=== PATIENT | male | born 1955 | race Two or more races ===

== ENCOUNTER 2016-12-16 15:30 | Outpatient (CLI) | payer BC | END 2016-12-16 23:59 | disposition home or self-care (01) | LOC: VASLAB 15:30 | PROVIDERS: ATTEND Surgery Vascular Surgery | DX: I70.261 Atherosclerosis of native arteries of extremities with gangrene, right leg (principal); L97.519 Non-pressure chronic ulcer of other part of right foot with unspecified severity | CPT/HCPCS: A6402; G0463 ==

== ENCOUNTER 2016-12-17 16:03 | Outpatient (CLI) | payer BC | END 2016-12-17 23:59 | disposition home or self-care (01) | LOC: WOU 16:03 | PROVIDERS: ATTEND Specialist | DX: E11.52 Type 2 diabetes mellitus with diabetic peripheral angiopathy with gangrene (principal); E11.621 Type 2 diabetes mellitus with foot ulcer; L97.519 Non-pressure chronic ulcer of other part of right foot with unspecified severity; I10 Essential (primary) hypertension; Z79.4 Long term (current) use of insulin | CPT/HCPCS: 99214; A6402; G0463 ==

== ENCOUNTER 2016-12-24 12:08 | Outpatient (CLI) | payer BC ==
[2016-12-24] MEDS ORDERED: SILVER SULFADIAZINE CREAM 400 GM JAR TP SCH (17:00)
[2016-12-25] MEDS ORDERED: DAKINS QUARTER STRENGTH (0.125%) 480 ML BOTTLE TOP SCH (09:00)
[2016-12-25] MEDS ORDERED: HYDR-3326 PO (15:15)
[2016-12-25] MEDS ORDERED: CLOP75TA2 PO (15:15)
[2016-12-25] MEDS ORDERED: LISI1TAB11 PO (15:15)
== END 2016-12-24 23:59 | disposition home or self-care (01) ==
LOC: WOU 12:08
PROVIDERS: ATTEND Specialist
DX: E11.52 Type 2 diabetes mellitus with diabetic peripheral angiopathy with gangrene (principal); E11.621 Type 2 diabetes mellitus with foot ulcer; M72.6 Necrotizing fasciitis; I10 Essential (primary) hypertension; Z98.62 Peripheral vascular angioplasty status; T14.90 Injury, unspecified; W22.03XS Walked into furniture, sequela; Z79.02 Long term (current) use of antithrombotics/antiplatelets; Z86.718 Personal history of other venous thrombosis and embolism; Z79.4 Long term (current) use of insulin
CPT/HCPCS: 87070-TC; 87186-TC; A6402; G0463

== ENCOUNTER 2016-12-24 20:33 | Emergency (ER) | payer BC ==
[2016-12-25] MEDS ORDERED: LISI1TAB11 PO (15:15)
[2016-12-25] MEDS ORDERED: HYDR-3326 PO (15:15)
[2016-12-25] MEDS ORDERED: CLOP75TA2 PO (15:15)
== END 2016-12-24 22:16 | disposition left against medical advice (07) ==
LOC: ER 20:36
DX: Z53.21 Procedure and treatment not carried out due to patient leaving prior to being seen by health care provider (principal)

== ENCOUNTER 2016-12-25 13:30 | Inpatient (IN) | payer BC, OTHER ==
[~2016-12-25] VITALS: Ht 167.6 cm; Wt 84.4 kg
[2016-12-25 14:49] LABS: BASOPHILS % (AUTO) 0.4 % (0.0-2.0); DIFF TOTAL % 100 %; EOSINOPHILS # (AUTO) 0.1 /CMM (0.0-0.7); EOSINOPHILS % (AUTO) 1.3 % (0.0-6.0); HEMATOCRIT 36 % (39-51); HEMOGLOBIN 11.6 g/dL (13.5-17.5); LYMPHOCYTES # (AUTO) 1.9 /CMM (0.8-4.8); LYMPHOCYTES % (AUTO) 18.4 % (20.0-44.0); MEAN CORPUSCULAR HEMOGLOBIN 26 PG (26.0-33.0); MEAN CORPUSCULAR HGB CONC 33 g/dl (31.0-36.0); MEAN CORPUSCULAR VOLUME 80 fL (80-96); MONOCYTES # (AUTO) 0.5 /CMM (0.1-1.30); NEUTROPHILS % (AUTO) 74.9 % (43.0-81.0); PLATELET COUNT (AUTO) 520 /CMM (150-450); RED BLOOD CELL COUNT(AUTO) 4.42 MIL/uL (4.5-6.0); WHITE BLOOD COUNT (AUTO) 10.5 K/uL (4.3-11.0)
[2016-12-25 15:01] LABS: CALCIUM, SERUM 9.7 mg/dL (8.5-10.1); CREATININE 0.9 mg/dL (0.6-1.3); POTASSIUM 4.1 mmol/L (3.5-5.1)
[2016-12-25 15:05] LABS: INR 0.98 (0.87-1.13); PROTHROMBIN TIME 10.3 SECS (9.5-12.7)
[2016-12-25] MEDS ORDERED: HYDR-3326 PO (15:15)
[2016-12-25] MEDS ORDERED: CLOP75TA2 PO (15:15)
[2016-12-25] MEDS ORDERED: LISI1TAB11 PO (15:15)
[2016-12-25] MEDS ORDERED: MORPHINE SULFATE INJ 4 MG/ML DISP.SYRIN ONE (15:19)
[2016-12-25] MEDS ORDERED: MORPHINE SULFATE INJ 10 MG/ML DISP.SYRIN IV ONE (15:30)
[2016-12-25] MEDS ORDERED: PIPERACILLIN /TAZOBACTAM 3.375 G in IV D5W 50 ML IV ONE (16:30)
[2016-12-25] MEDS ORDERED: VANCOMYCIN 1 GM in IV D5W 250 ML IV ONE (16:30)
[2016-12-25] MEDS ORDERED: ONDANSETRON HCL/PF 4 MG/2 ML VIAL IVP PRN ×3 (17:00→18:00)
[2016-12-25] MEDS ORDERED: MAG HYDROX/AL HYDROX/SIMETH 30 ML UDC PO PRN ×4 (17:00→18:00)
[2016-12-25] MEDS ORDERED: IV NS 0.9% 1,000 ML IV SCH (17:00)
[2016-12-25] MEDS ORDERED: ACETAMINOPHEN 325 MG TABLET PO PRN ×4 (17:00→18:00)
[2016-12-25] MEDS ORDERED: HYDROCODONE/APAP 5/325MG 1 EACH TABLET PO PRN ×4 (17:00→18:00)
[2016-12-25] MEDS ORDERED: ZOLPIDEM TARTRATE 5 MG TABLET PO PRN ×4 (17:00→18:00)
[2016-12-25] MEDS ORDERED: Z GUARD REMEDY 2 OZ OINT TP PRN ×4 (17:00→18:00)
[2016-12-25] MEDS ORDERED: MAGNESIUM HYDROXIDE 30 ML UDC PO PRN ×4 (17:00→18:00)
[2016-12-25] MEDS ORDERED: IV SET PRIMARY PUMP SET 1 EA INFUS.SET MC ONE ×2 (17:24→20:07)
[2016-12-25] MEDS ORDERED: FEE PK DOSING 1 MIN EA MC ONE (19:49)
[2016-12-25 20:00] VITALS: BP_SYST 136; BP_SYST 154; BP_DIAS 80; BP_DIAS 82
[2016-12-25] MEDS: IV NS 0.9% 1,000 ML IV SCH (20:13)
[2016-12-25] MEDS ORDERED: VANCOMYCIN 1.5 GM in IV D5W 500 ML IV SCH (21:00)
[2016-12-25] MEDS: VANCOMYCIN 1.25 GM in IV D5W 500 ML IV SCH (21:00)
[2016-12-25] MEDS ORDERED: MORPHINE SULFATE INJ 2 MG/ML DISP.SYRIN ONE (21:28)
[2016-12-25] MEDS: MORPHINE SULFATE INJ 2 MG/ML DISP.SYRIN IV PRN (22:09)
[2016-12-26] VITALS (7 sets, daily range): BP systolic 129–166; BP diastolic 70–87
[2016-12-26] MEDS: MORPHINE SULFATE INJ 2 MG/ML DISP.SYRIN IV PRN ×4 (05:33→20:29)
[2016-12-26] MEDS ORDERED: PANTOPRAZOLE 40 MG TABLET.DR PO SCH ×3 (07:30)
[2016-12-26] MEDS: PANTOPRAZOLE 40 MG TABLET.DR PO SCH ×2 (08:52→14:05)
[2016-12-26] MEDS: HYDROCHLOROTHIAZIDE 25 MG TABLET PO SCH ×2 (08:52→14:05)
[2016-12-26] MEDS: LISINOPRIL (20MG) 20 MG TABLET PO SCH ×2 (08:52→14:05)
[2016-12-26] MEDS: IV NS 0.9% 1,000 ML IV SCH ×2 (09:17→20:28)
[2016-12-26] MEDS ORDERED: SECONDARY IV SET 1 EA INFUS.SET MC ONE ×2 (09:21→09:40)
[2016-12-26] MEDS: VANCOMYCIN 1.25 GM in IV D5W 500 ML IV SCH ×2 (09:40→20:28)
[2016-12-26] MEDS ORDERED: DEXTROSE 50%-WATER 50 ML DISP.SYRIN IV PRN (10:30)
[2016-12-26] MEDS: BLOOD SUGAR DIAGNOSTIC 1 EACH STRIP VI SCH ×3 (12:00→22:38)
[2016-12-26] MEDS ORDERED: MIDAZOLAM HCL 2 MG/2ML VIAL ONE (12:26)
[2016-12-26] MEDS ORDERED: FENTANYL PF 100MCG/2ML AMPUL ONE (12:26)
[2016-12-26] MEDS ORDERED: LIDOCAINE 1% INJ 50 ML MDV IJ ONE (12:46)
[2016-12-26] MEDS: HYDROCODONE/APAP 5/325MG 1 EACH TABLET PO PRN ×2 (17:30→23:41)
[2016-12-26] MEDS: INSULIN REGULAR, HUMAN 100 UNIT/ML 3 ML VIAL SQ PRN (17:36)
[2016-12-26] MEDS: LEVOFLOXACIN (500MG) 500 MG TABLET PO SCH (17:39)
[2016-12-26] MEDS: MAGNESIUM HYDROXIDE 30 ML UDC PO PRN (17:56)
[2016-12-26] MEDS: *INSULIN REGULAR(HUMULIN R)HUM 100 UNIT/ML VIAL SQ PRN (22:46)
[2016-12-27] MEDS: MORPHINE SULFATE INJ 2 MG/ML DISP.SYRIN IV PRN ×5 (00:56→20:35)
[2016-12-27] MEDS: INSULIN REGULAR, HUMAN 100 UNIT/ML 3 ML VIAL SQ PRN ×3 (06:39→18:03)
[2016-12-27] MEDS: BLOOD SUGAR DIAGNOSTIC 1 EACH STRIP VI SCH ×4 (06:40→21:55)
[2016-12-27 06:57] LABS: CALCIUM, SERUM 8.8 mg/dL (8.5-10.1); CREATININE 0.9 mg/dL (0.6-1.3); POTASSIUM 3.8 mmol/L (3.5-5.1)
[2016-12-27 08:00] VITALS: BP 141/86
[2016-12-27] MEDS: LISINOPRIL (20MG) 20 MG TABLET PO SCH (08:40)
[2016-12-27] MEDS: HYDROCHLOROTHIAZIDE 25 MG TABLET PO SCH (08:41)
[2016-12-27] MEDS: PANTOPRAZOLE 40 MG TABLET.DR PO SCH (08:42)
[2016-12-27] MEDS: HYDROCODONE/APAP 5/325MG 1 EACH TABLET PO PRN (08:42)
[2016-12-27] MEDS: VANCOMYCIN 1.25 GM in IV D5W 500 ML IV SCH ×2 (10:08→20:37)
[2016-12-27] MEDS: IV NS 0.9% 1,000 ML IV SCH (10:08)
[2016-12-27 16:00] VITALS: BP 155/83
[2016-12-27] MEDS: LACTOBACILLUS RHAMNOSUS GG 1 EACH CAP.SPRINK PO SCH (16:38)
[2016-12-27] MEDS: LEVOFLOXACIN (500MG) 500 MG TABLET PO SCH (17:58)
[2016-12-27 20:00] VITALS: BP 121/77
[2016-12-27] MEDS ORDERED: SECONDARY IV SET 1 EA INFUS.SET MC ONE (20:32)
[2016-12-27] MEDS: *INSULIN REGULAR(HUMULIN R)HUM 100 UNIT/ML VIAL SQ PRN (21:40)
[2016-12-27 22:00] VITALS: BP 121/77
[2016-12-28] MEDS: MORPHINE SULFATE INJ 2 MG/ML DISP.SYRIN IV PRN ×4 (00:37→21:49)
[2016-12-28] MEDS: IV NS 0.9% 1,000 ML IV SCH (00:37)
[2016-12-28] MEDS: BLOOD SUGAR DIAGNOSTIC 1 EACH STRIP VI SCH ×4 (06:38→22:00)
[2016-12-28] MEDS: INSULIN REGULAR, HUMAN 100 UNIT/ML 3 ML VIAL SQ PRN ×3 (06:41→17:39)
[2016-12-28 08:00] VITALS: BP 127/69
[2016-12-28 08:01] LABS: CALCIUM, SERUM 8.5 mg/dL (8.5-10.1); CREATININE 1.1 mg/dL (0.6-1.3); POTASSIUM 3.9 mmol/L (3.5-5.1)
[2016-12-28] MEDS: MAGNESIUM HYDROXIDE 30 ML UDC PO PRN (09:03)
[2016-12-28] MEDS: VANCOMYCIN 1.25 GM in IV D5W 500 ML IV SCH (09:03)
[2016-12-28] MEDS: PANTOPRAZOLE 40 MG TABLET.DR PO SCH (09:05)
[2016-12-28] MEDS: LACTOBACILLUS RHAMNOSUS GG 1 EACH CAP.SPRINK PO SCH ×2 (09:05→17:32)
[2016-12-28] MEDS: LISINOPRIL (20MG) 20 MG TABLET PO SCH (09:05)
[2016-12-28] MEDS: HYDROCHLOROTHIAZIDE 25 MG TABLET PO SCH (09:05)
[2016-12-28] MEDS ORDERED: BISACODYL SUPP (10 MG) 10 MG/SUPP.RECT SUPP.RECT RC ONE (10:30)
[2016-12-28 13:28] LABS: URINE SODIUM, RANDOM 26 mmol/l (40-220)
[2016-12-28] MEDS: HYDROCODONE/APAP 5/325MG 1 EACH TABLET PO PRN (13:30)
[2016-12-28 16:00] VITALS: BP 122/71
[2016-12-28] MEDS: LEVOFLOXACIN (500MG) 500 MG TABLET PO SCH (17:32)
[2016-12-28 20:00] VITALS: BP 143/80
[2016-12-28] MEDS: VANCOMYCIN 1 GM in IV D5W 250 ML IV SCH (21:04)
[2016-12-28 22:00] VITALS: BP 143/80
[2016-12-28] MEDS: *INSULIN REGULAR(HUMULIN R)HUM 100 UNIT/ML VIAL SQ PRN (22:13)
[2016-12-29] MEDS: HYDROCODONE/APAP 5/325MG 1 EACH TABLET PO PRN ×3 (00:23→19:13)
[2016-12-29] MEDS: BLOOD SUGAR DIAGNOSTIC 1 EACH STRIP VI SCH ×4 (06:28→21:51)
[2016-12-29] MEDS: INSULIN REGULAR, HUMAN 100 UNIT/ML 3 ML VIAL SQ PRN ×4 (06:29→22:06)
[2016-12-29 07:51] LABS: THYROID STIMULATING HORMONE 1.324 uIU/mL (0.358-3.74); URIC ACID 4.9 mg/dL (2.6-7.2)
[2016-12-29 07:54] LABS: CALCIUM, SERUM 9.5 mg/dL (8.5-10.1); CREATININE 1.1 mg/dL (0.6-1.3); PHOSPHORUS 3.6 mg/dL (2.5-4.9); POTASSIUM 3.8 mmol/L (3.5-5.1)
[2016-12-29] MEDS: LACTOBACILLUS RHAMNOSUS GG 1 EACH CAP.SPRINK PO SCH ×2 (08:47→16:52)
[2016-12-29] MEDS: VANCOMYCIN 1 GM in IV D5W 250 ML IV SCH ×2 (08:47→21:51)
[2016-12-29] MEDS: PANTOPRAZOLE 40 MG TABLET.DR PO SCH (08:48)
[2016-12-29] MEDS: LISINOPRIL (20MG) 20 MG TABLET PO SCH (08:49)
[2016-12-29] MEDS: HYDROCHLOROTHIAZIDE 25 MG TABLET PO SCH (08:49)
[2016-12-29 16:00] VITALS: BP 119/68
[2016-12-29] MEDS: LEVOFLOXACIN (500MG) 500 MG TABLET PO SCH (16:52)
[2016-12-29] MEDS ORDERED: LEVO500T15 PO (18:24)
[2016-12-29] MEDS ORDERED: RXVAN XX (18:24)
[2016-12-29 20:00] VITALS: BP 118/48
[2016-12-29] MEDS: MORPHINE SULFATE INJ 2 MG/ML DISP.SYRIN IV PRN (22:57)
[2016-12-30] MEDS: BLOOD SUGAR DIAGNOSTIC 1 EACH STRIP VI SCH ×4 (06:45→21:43)
[2016-12-30] MEDS: PANTOPRAZOLE 40 MG TABLET.DR PO SCH (06:48)
[2016-12-30] MEDS: *INSULIN REGULAR(HUMULIN R)HUM 100 UNIT/ML VIAL SQ PRN (06:51)
[2016-12-30] MEDS: ONDANSETRON HCL/PF 4 MG/2 ML VIAL IVP PRN (07:10)
[2016-12-30 07:41] LABS: CREATININE 1.2 mg/dL (0.6-1.3); POTASSIUM 3.6 mmol/L (3.5-5.1)
[2016-12-30 08:00] VITALS: BP 133/83
[2016-12-30] MEDS: LACTOBACILLUS RHAMNOSUS GG 1 EACH CAP.SPRINK PO SCH ×2 (08:21→17:20)
[2016-12-30] MEDS: LISINOPRIL (20MG) 20 MG TABLET PO SCH (08:22)
[2016-12-30] MEDS: HYDROCHLOROTHIAZIDE 25 MG TABLET PO SCH (08:22)
[2016-12-30] MEDS: VANCOMYCIN 1 GM in IV D5W 250 ML IV SCH ×2 (08:56→20:59)
[2016-12-30] MEDS ORDERED: COLLAGENASE 15 GM TUBE TP SCH ×2 (09:00→17:00)
[2016-12-30] MEDS: INSULIN REGULAR, HUMAN 100 UNIT/ML 3 ML VIAL SQ PRN ×3 (11:41→21:45)
[2016-12-30] MEDS: HYDROCODONE/APAP 5/325MG 1 EACH TABLET PO PRN ×2 (12:26→17:27)
[2016-12-30] MEDS: SILVER SULFADIAZINE CREAM 400 GM JAR TP SCH ×2 (13:19→21:00)
[2016-12-30 16:00] VITALS: BP 101/62
[2016-12-30] MEDS: LEVOFLOXACIN (500MG) 500 MG TABLET PO SCH (17:20)
[2016-12-30 20:00] VITALS: BP 100/55
[2016-12-31] MEDS: BLOOD SUGAR DIAGNOSTIC 1 EACH STRIP VI SCH ×3 (06:30→17:20)
[2016-12-31] MEDS: INSULIN REGULAR, HUMAN 100 UNIT/ML 3 ML VIAL SQ PRN ×3 (06:33→17:53)
[2016-12-31 08:00] VITALS: BP 133/68
[2016-12-31] MEDS: PANTOPRAZOLE 40 MG TABLET.DR PO SCH (08:44)
[2016-12-31] MEDS: LACTOBACILLUS RHAMNOSUS GG 1 EACH CAP.SPRINK PO SCH ×2 (08:44→17:54)
[2016-12-31] MEDS: LISINOPRIL (20MG) 20 MG TABLET PO SCH (08:44)
[2016-12-31] MEDS: HYDROCHLOROTHIAZIDE 25 MG TABLET PO SCH (08:45)
[2016-12-31] MEDS: SILVER SULFADIAZINE CREAM 400 GM JAR TP SCH ×2 (08:49→16:24)
[2016-12-31] MEDS: ONDANSETRON HCL/PF 4 MG/2 ML VIAL IVP PRN (08:56)
[2016-12-31 09:05] LABS: CREATININE 1.4 mg/dL (0.6-1.3); POTASSIUM 3.5 mmol/L (3.5-5.1)
[2016-12-31 16:00] VITALS: BP 146/80
[2016-12-31] MEDS: HYDROCODONE/APAP 5/325MG 1 EACH TABLET PO PRN (16:51)
[2016-12-31] MEDS: VANCOMYCIN 1 GM in IV D5W 250 ML IV SCH (17:07)
[2016-12-31] MEDS ORDERED: SECONDARY IV SET 1 EA INFUS.SET MC ONE (17:11)
[2016-12-31] MEDS: LEVOFLOXACIN (500MG) 500 MG TABLET PO SCH (17:54)
[2016-12-31 20:05] LABS: URINE SODIUM, RANDOM 51 mmol/l (40-220)
== END 2016-12-31 19:00 | disposition home or self-care (01) | DRG 256 ==
LOC: ER 13:32 → MED 17:57
PROVIDERS: ADMIT Internal Medicine; ATTEND Internal Medicine
DX: E11.52 Type 2 diabetes mellitus with diabetic peripheral angiopathy with gangrene (principal); E87.1 Hypo-osmolality and hyponatremia; M86.9 Osteomyelitis, unspecified; E11.621 Type 2 diabetes mellitus with foot ulcer; E11.65 Type 2 diabetes mellitus with hyperglycemia; L97.509 Non-pressure chronic ulcer of other part of unspecified foot with unspecified severity; I10 Essential (primary) hypertension; E11.69 Type 2 diabetes mellitus with other specified complication; Z89.431 Acquired absence of right foot
CPT/HCPCS: 36415; 71010-TC; 73630-TC; 80048-TC; 80202-TC; 82962-TC; 83735-TC; 83935-TC; 84100-TC; 84300-TC; 84443-TC; 84550-TC; 85025-TC; 85730-TC; 86140-TC; 87040-TC; 87070-TC; 87081-TC; 87186-TC; 88305-TC; 88307-TC; 88311-TC; 88312-TC; 97001-TC; 97116-TC; 97530-TC; A4606; A6209; A6402; A6403; C1751; J1815; J2250; J2270; J2405; J2543; J3010; J3370; J3490; J7030; J7060; Z7610

== ENCOUNTER 2017-01-07 11:35 | Outpatient (CLI) | payer BC ==
[~2017-01-07 11:35] MED LIST: CLOP75TA2 PO; HYDR-3326 PO; LEVO500T15 PO; LISI1TAB11 PO; RXVAN XX
== END 2017-01-07 23:59 | disposition home or self-care (01) ==
LOC: WOU 11:35
PROVIDERS: ATTEND Podiatrist Foot & Ankle Surgery
DX: E11.52 Type 2 diabetes mellitus with diabetic peripheral angiopathy with gangrene (principal); E11.621 Type 2 diabetes mellitus with foot ulcer; E11.69 Type 2 diabetes mellitus with other specified complication; M86.371 Chronic multifocal osteomyelitis, right ankle and foot; Z89.431 Acquired absence of right foot; B95.8 Unspecified staphylococcus as the cause of diseases classified elsewhere; B95.2 Enterococcus as the cause of diseases classified elsewhere; I10 Essential (primary) hypertension; Z98.62 Peripheral vascular angioplasty status; Z86.718 Personal history of other venous thrombosis and embolism; Z79.4 Long term (current) use of insulin; M72.6 Necrotizing fasciitis
CPT/HCPCS: 11043; 11046; A6402 ×2; G0463

== ENCOUNTER 2017-01-21 11:25 | Outpatient (CLI) | payer BC | END 2017-01-21 23:59 | disposition home or self-care (01) | DX: T87.53 Necrosis of amputation stump, right lower extremity (principal); E11.621 Type 2 diabetes mellitus with foot ulcer; L97.513 Non-pressure chronic ulcer of other part of right foot with necrosis of muscle; Z98.62 Peripheral vascular angioplasty status | CPT/HCPCS: 11043; 11046; A6402 ==

== ENCOUNTER 2017-01-27 11:30 | Outpatient (CLI) | payer BC | END 2017-01-27 23:59 | disposition home or self-care (01) | LOC: WOU 11:30 | PROVIDERS: ATTEND Podiatrist Foot & Ankle Surgery | DX: E11.621 Type 2 diabetes mellitus with foot ulcer (principal); E11.52 Type 2 diabetes mellitus with diabetic peripheral angiopathy with gangrene; Z98.62 Peripheral vascular angioplasty status; E11.69 Type 2 diabetes mellitus with other specified complication; M86.30 Chronic multifocal osteomyelitis, unspecified site; M72.6 Necrotizing fasciitis; L97.513 Non-pressure chronic ulcer of other part of right foot with necrosis of muscle; T87.53 Necrosis of amputation stump, right lower extremity; T14.90 Injury, unspecified; W22.03XS Walked into furniture, sequela; Z79.4 Long term (current) use of insulin | CPT/HCPCS: 11043; 11046; A6402 ==